=== PATIENT | male | born 1960 | race Caucasian/White ===

== ENCOUNTER → 2023-09-29 | Outpatient (REF) | payer OTHER | LOC: M SFHCDERM 17:08 | PROVIDERS: ATTEND Physician Assistant | DX: C44.309 Unspecified malignant neoplasm of skin of other parts of face (principal) ==

== ENCOUNTER → 2023-10-28 | Outpatient (REF) | payer OTHER | LOC: M SFHCDERM 13:13 | PROVIDERS: ATTEND Physician Assistant | DX: D04.71 Carcinoma in situ of skin of right lower limb, including hip (principal); L85.8 Other specified epidermal thickening ==

== ENCOUNTER 2024-05-06 13:03 | Inpatient (IN) | payer OTHER ==
[~2024-05-06] VITALS: Ht 170.2 cm; Wt 100.6 kg
[~2024-05-06 13:03] MED LIST: FOLIC ACID 1MG TAB PO SCH; MULTIVITAMINS/MINERALS THERAP 1 TAB PO SCH; THIAMINE 100 MG TAB PO SCH
[2024-05-06] MEDS ORDERED: VALS1TAB67 PO (13:16)
[2024-05-06] MEDS ORDERED: SIMV20TA22 PO (13:16)
[2024-05-06] MEDS ORDERED: BISO10TA14 PO (13:16)
[2024-05-06] MEDS ORDERED: HYDR12CA PO (13:16)
[2024-05-06 15:25] LABS: BASO % 0.3 % (0.0-1.0); EOS # 0.1 10^3/uL (0.0-0.5); EOS % 1.4 % (0.0-3.0); HEMATOCRIT 52.4 % (42.0-52.0); HEMOGLOBIN 18.5 g/dl (13.5-17.5); LYMPH # 0.9 10^3/uL (1.5-5.0); LYMPH % 11.4 % (24.0-44.0); MEAN CORPUSCULAR HEMOGLOBIN 32.6 pg (27.0-33.0); MEAN CORPUSCULAR HGB CONC 35.3 g/dl (32.0-36.5); MEAN CORPUSCULAR VOLUME 92.3 fl (80.0-96.0); MONO # 0.8 10^3/uL (0.0-0.8); MONO % 10.6 % (2.0-8.0); NEUTROPHILS # 5.9 10^3/uL (1.5-8.5); NEUTROPHILS % 76.2 % (36.0-66.0); PLATELET COUNT, AUTOMATED 365 10^3/uL (150-450); RED BLOOD COUNT 5.68 10^6/uL (4.30-6.10); WHITE BLOOD COUNT 7.7 10^3/uL (4.0-10.0)
[2024-05-06 15:39] LABS: INR 0.86; PARTIAL THROMBOPLASTIN TIME 30.3 SECONDS (24.8-34.2)
[2024-05-06 15:56] LABS: LIPASE 35 U/L (12-53)
[2024-05-06 15:57] LABS: CK-MB VALUE MASS 4.7 NG/ML (<3.6)
[2024-05-06 15:59] LABS: ALBUMIN 0.9 G/DL (3.2-5.2); ALKALINE PHOSPHATASE 137 U/L (40-129); ALT/SGPT 17 U/L (7.0-40); AST/SGOT 35 U/L (<34); BILIRUBIN,DIRECT < 0.1 MG/DL (<0.4); BILIRUBIN,TOTAL 0.4 MG/DL (0.3-1.2); BLOOD UREA NITROGEN 42 MG/DL (9-23); CALCIUM LEVEL 8.2 MG/DL (8.3-10.6); CARBON DIOXIDE LEVEL 24 MMOL/L (20-31); CHLORIDE LEVEL 104 MMOL/L (98-107); CREATININE FOR GFR 1.49 MG/DL (0.70-1.30); GLOMERULAR FILTRATION RATE 50.9 (>49); GLUCOSE, FASTING 96 MG/DL (74-106); POTASSIUM SERUM 4.5 MMOL/L (3.5-5.1); SODIUM LEVEL 138 MMOL/L (136-145); TOTAL PROTEIN 4.5 G/DL (5.7-8.2)
[2024-05-06 16:00] LABS: CPK CREATINE PHOSPHOKINASE 218 U/L (46-171); MB/CK RELATIVE INDEX 2.15 (< OR =4)
[2024-05-06] MEDS: FUROSEMIDE 100MG/10ML VIAL IV ONE (16:10)
[2024-05-06] MEDS ORDERED: ISOVUE-370 76% 100ML VIAL As Ordered ONE (16:11)
[2024-05-06] MEDS: bisoproloL fumarate 5 MG TAB PO ONE (17:30)
[2024-05-06] MEDS ORDERED: OMEP-173 PO (17:50)
[2024-05-06] MEDS ORDERED: HOME MED LIST COMPLETE! XX SCH (17:50)
[2024-05-06] MEDS: FUROSEMIDE injection 100 MG, VIAL 2 BAG 13MM ADAPTER 1 EACH in NS 100 ML IV SCH (18:45)
[2024-05-06] MEDS ORDERED: LORazepam 2 MG TAB PO PRN (19:40)
[2024-05-06] MEDS: NITROGLYCERIN 2% OINT 1 GM *U/D* PKT TOP ONE (20:19)
[2024-05-06] MEDS: SIMVASTATIN 20 MG TAB PO SCH (20:20)
[2024-05-06] MEDS: MULTIVITAMINS/MINERALS THERAP 1 TAB PO SCH (20:52)
[2024-05-06] MEDS: FOLIC ACID 1MG TAB PO SCH (20:52)
[2024-05-06] MEDS: THIAMINE 100 MG TAB PO SCH (20:52)
[2024-05-07] MEDS ORDERED: **hydrALAZINE** 10 MG TAB PO SCH
[2024-05-07 00:51] LABS: CALCIUM LEVEL 7.8 MG/DL (8.3-10.6); CREATININE FOR GFR 1.65 MG/DL (0.70-1.30); GLOMERULAR FILTRATION RATE 45.2 (>49); PHOSPHORUS LEVEL 5.4 MG/DL (2.4-5.1)
[2024-05-07 06:54] LABS: HEMATOCRIT 47.9 % (42.0-52.0); HEMOGLOBIN 16.7 g/dl (13.5-17.5); MEAN CORPUSCULAR HEMOGLOBIN 32.6 pg (27.0-33.0); MEAN CORPUSCULAR HGB CONC 34.9 g/dl (32.0-36.5); MEAN CORPUSCULAR VOLUME 93.4 fl (80.0-96.0); PLATELET COUNT, AUTOMATED 282 10^3/uL (150-450); RED BLOOD COUNT 5.13 10^6/uL (4.30-6.10); WHITE BLOOD COUNT 8.2 10^3/uL (4.0-10.0)
[2024-05-07 07:31] LABS: ALBUMIN 0.8 G/DL (3.2-5.2); BILIRUBIN,TOTAL 0.4 MG/DL (0.3-1.2); CALCIUM LEVEL 7.7 MG/DL (8.3-10.6); CREATININE FOR GFR 1.56 MG/DL (0.70-1.30); GLOMERULAR FILTRATION RATE 48.2 (>49); POTASSIUM SERUM 4.7 MMOL/L (3.5-5.1); TOTAL PROTEIN 3.9 G/DL (5.7-8.2)
[2024-05-07] MEDS: bisoproloL fumarate 10 MG TAB PO SCH (09:00)
[2024-05-07] MEDS ORDERED: oxyCODONE 5MG TAB PO PRN (11:30)
[2024-05-07] MEDS: oxyCODONE 5MG TAB PO ONE (12:09)
[2024-05-07] MEDS: **hydrALAZINE** 10 MG TAB PO SCH (12:55)
[2024-05-07] MEDS: ISOSORBIDE DIN (ISORDIL) 10MG TAB PO SCH (12:56)
[2024-05-07] MEDS: LIDOCAINE 5% OINT 30GM TUBE TOP SCH (13:00)
[2024-05-07 22:46] VITALS: BP 163/90; TEMP 97.4; O2SAT 97
[2024-05-07] MEDS ORDERED: LORazepam 1 MG TAB PO PRN (22:50)
[2024-05-08] VITALS (19 sets, daily range): BP systolic 135–186; BP diastolic 80–98; TEMP 96.9–98.1; O2SAT 93–98
[2024-05-08 06:52] LABS: HEMATOCRIT 43.6 % (42.0-52.0); HEMOGLOBIN 14.8 g/dl (13.5-17.5); MEAN CORPUSCULAR HEMOGLOBIN 32.5 pg (27.0-33.0); MEAN CORPUSCULAR HGB CONC 33.9 g/dl (32.0-36.5); MEAN CORPUSCULAR VOLUME 95.6 fl (80.0-96.0); PLATELET COUNT, AUTOMATED 220 10^3/uL (150-450); RED BLOOD COUNT 4.56 10^6/uL (4.30-6.10); WHITE BLOOD COUNT 8.4 10^3/uL (4.0-10.0)
[2024-05-08 08:12] LABS: ALBUMIN 1.1 G/DL (3.2-5.2); BILIRUBIN,TOTAL 0.5 MG/DL (0.3-1.2); CALCIUM LEVEL 7.6 MG/DL (8.3-10.6); CREATININE FOR GFR 1.39 MG/DL (0.70-1.30); GLOMERULAR FILTRATION RATE 55.1 (>49); POTASSIUM SERUM 4.3 MMOL/L (3.5-5.1); TOTAL PROTEIN 3.9 G/DL (5.7-8.2)
[2024-05-08] MEDS: metOLazone 5 MG TAB PO ONE ×2 (08:24→17:48)
[2024-05-08] MEDS: FUROSEMIDE 40MG/4ML VIAL IV SCH (09:24)
[2024-05-08 16:04] LABS: APPEARANCE, BODY FLUID HAZY (CLEAR); ASCITES FL COLOR COLORLESS (COLORLESS); SOURCE, BODY FLUID ASCITES
[2024-05-08 16:54] LABS: SOURCE, BODY FLUID ALBUMIN ASCITES
[2024-05-08 16:59] LABS: SOURCE, BODY FLUID GLUCOSE ASCITES
[2024-05-08] MEDS: SODIUM CHLORIDE 0.9% INJ 10 ML SYR IV SCH (17:17)
[2024-05-08] MEDS: cloNIDine 0.1MG TABLET PO ONE (17:48)
[2024-05-08] MEDS: FUROSEMIDE 40MG/4ML VIAL IV ONE (18:17)
[2024-05-08 20:35] LABS: SOURCE, BODY FLUID TOT PROTEIN ASCITES; TOTAL PROTEIN, BODY FLUID < 2.0 G/DL (NOT ESTABLISHED)
[2024-05-09] VITALS (12 sets, daily range): BP systolic 140–170; BP diastolic 92–120; TEMP 97.2–98.6; O2SAT 61–96
[2024-05-09] MEDS: FUROSEMIDE 40MG/4ML VIAL IV SCH (00:08)
[2024-05-09 06:38] LABS: HEMATOCRIT 38.7 % (42.0-52.0); HEMOGLOBIN 13.7 g/dl (13.5-17.5); MEAN CORPUSCULAR HEMOGLOBIN 32.5 pg (27.0-33.0); MEAN CORPUSCULAR HGB CONC 35.4 g/dl (32.0-36.5); MEAN CORPUSCULAR VOLUME 91.7 fl (80.0-96.0); PLATELET COUNT, AUTOMATED 191 10^3/uL (150-450); RED BLOOD COUNT 4.22 10^6/uL (4.30-6.10); WHITE BLOOD COUNT 6.8 10^3/uL (4.0-10.0)
[2024-05-09 07:16] LABS: ALBUMIN 1.2 G/DL (3.2-5.2); ALKALINE PHOSPHATASE 82 U/L (40-129); ALT/SGPT < 9 U/L (7.0-40); AST/SGOT 15 U/L (<34); BILIRUBIN,TOTAL 0.7 MG/DL (0.3-1.2); BLOOD UREA NITROGEN 45 MG/DL (9-23); CALCIUM LEVEL 7.5 MG/DL (8.3-10.6); CARBON DIOXIDE LEVEL 27 MMOL/L (20-31); CHLORIDE LEVEL 102 MMOL/L (98-107); CREATININE FOR GFR 1.15 MG/DL (0.70-1.30); GLOMERULAR FILTRATION RATE > 60.0 (>49); GLUCOSE, FASTING 77 MG/DL (74-106); MAGNESIUM LEVEL 1.8 MG/DL (1.8-2.4); POTASSIUM SERUM 3.6 MMOL/L (3.5-5.1); SODIUM LEVEL 137 MMOL/L (136-145); TOTAL PROTEIN 3.4 G/DL (5.7-8.2)
[2024-05-09] MEDS: SODIUM CHLORIDE 0.9% INJ 10 ML SYR IV PRN (11:45)
[2024-05-09] MEDS: POTASSIUM CHLORIDE 10MEQ SR TABLET PO ONE ×2 (19:06→20:37)
[2024-05-09] MEDS: bisoproloL fumarate 10 MG TAB PO ONE (19:07)
[2024-05-09 19:44] LABS: BLOOD UREA NITROGEN 43 MG/DL (9-23); CALCIUM LEVEL 7.3 MG/DL (8.3-10.6); CARBON DIOXIDE LEVEL 28 MMOL/L (20-31); CHLORIDE LEVEL 102 MMOL/L (98-107); CREATININE FOR GFR 1.14 MG/DL (0.70-1.30); GLOMERULAR FILTRATION RATE > 60.0 (>49); GLUCOSE, FASTING 108 MG/DL (74-106); MAGNESIUM LEVEL 1.7 MG/DL (1.8-2.4); POTASSIUM SERUM 3.4 MMOL/L (3.5-5.1); SODIUM LEVEL 136 MMOL/L (136-145)
[2024-05-09 20:34] LABS: ALKALINE PHOSPHATASE 108 U/L (40-129); ALT/SGPT < 9 U/L (7.0-40); AST/SGOT 17 U/L (<34); BILIRUBIN,TOTAL 0.4 MG/DL (0.3-1.2); TOTAL PROTEIN 3.9 G/DL (5.7-8.2)
[2024-05-09] MEDS: SODIUM CHLORIDE 0.9% 250ML IV ONE (20:37)
[2024-05-09] MEDS: MAGNESIUM OXIDE 400MG TAB (MAG-OX) PO ONE (20:37)
[2024-05-10] VITALS (8 sets, daily range): BP systolic 142–156; BP diastolic 90–110; TEMP 97.6–98.8; O2SAT 92–94
[2024-05-10 05:44] LABS: HEMATOCRIT 43.6 % (42.0-52.0); HEMOGLOBIN 15.4 g/dl (13.5-17.5); MEAN CORPUSCULAR HEMOGLOBIN 32.1 pg (27.0-33.0); MEAN CORPUSCULAR HGB CONC 35.3 g/dl (32.0-36.5); MEAN CORPUSCULAR VOLUME 90.8 fl (80.0-96.0); PLATELET COUNT, AUTOMATED 215 10^3/uL (150-450); WHITE BLOOD COUNT 7.8 10^3/uL (4.0-10.0)
[2024-05-10 06:09] LABS: ALKALINE PHOSPHATASE 97 U/L (40-129); ALT/SGPT < 9 U/L (7.0-40); AST/SGOT 15 U/L (<34); BILIRUBIN,TOTAL 0.5 MG/DL (0.3-1.2); BLOOD UREA NITROGEN 42 MG/DL (9-23); CALCIUM LEVEL 7.2 MG/DL (8.3-10.6); CARBON DIOXIDE LEVEL 27 MMOL/L (20-31); CHLORIDE LEVEL 104 MMOL/L (98-107); CREATININE FOR GFR 1.27 MG/DL (0.70-1.30); GLOMERULAR FILTRATION RATE > 60.0 (>49); GLUCOSE, FASTING 93 MG/DL (74-106); MAGNESIUM LEVEL 1.7 MG/DL (1.8-2.4); POTASSIUM SERUM 4.1 MMOL/L (3.5-5.1); SODIUM LEVEL 138 MMOL/L (136-145); TOTAL PROTEIN 3.7 G/DL (5.7-8.2)
[2024-05-10] MEDS: MAGNESIUM OXIDE 400MG TAB (MAG-OX) PO SCH (09:11)
[2024-05-10] MEDS: FUROSEMIDE 40MG/4ML VIAL IV SCH (09:11)
[2024-05-10] MEDS: THIAMINE 100 MG TAB PO SCH (09:11)
[2024-05-10] MEDS: metOLazone 5 MG TAB PO SCH (12:43)
[2024-05-10] MEDS ORDERED: ONDANSETRON 4MG 2ML VIAL IV PRN (15:40)
[2024-05-10] MEDS: bisoproloL fumarate 10 MG TAB PO SCH (20:18)
[2024-05-11] VITALS (11 sets, daily range): BP systolic 130–170; BP diastolic 84–130; TEMP 97.2–98.2; O2SAT 93–95
[2024-05-11 06:30] LABS: HEMOGLOBIN 15.6 g/dl (13.5-17.5); MEAN CORPUSCULAR HEMOGLOBIN 31.6 pg (27.0-33.0); MEAN CORPUSCULAR HGB CONC 34.7 g/dl (32.0-36.5); MEAN CORPUSCULAR VOLUME 91.3 fl (80.0-96.0); PLATELET COUNT, AUTOMATED 226 10^3/uL (150-450); RED BLOOD COUNT 4.93 10^6/uL (4.30-6.10); WHITE BLOOD COUNT 7.6 10^3/uL (4.0-10.0)
[2024-05-11 06:58] LABS: ALBUMIN 1.1 G/DL (3.2-5.2); ALKALINE PHOSPHATASE 96 U/L (40-129); ALT/SGPT < 9 U/L (7.0-40); AST/SGOT 16 U/L (<34); BILIRUBIN,TOTAL 0.5 MG/DL (0.3-1.2); BLOOD UREA NITROGEN 42 MG/DL (9-23); CALCIUM LEVEL 7.4 MG/DL (8.3-10.6); CARBON DIOXIDE LEVEL 29 MMOL/L (20-31); CHLORIDE LEVEL 102 MMOL/L (98-107); CREATININE FOR GFR 1.28 MG/DL (0.70-1.30); GLOMERULAR FILTRATION RATE > 60.0 (>49); GLUCOSE, FASTING 85 MG/DL (74-106); MAGNESIUM LEVEL 1.8 MG/DL (1.8-2.4); SODIUM LEVEL 136 MMOL/L (136-145); TOTAL PROTEIN 3.6 G/DL (5.7-8.2)
[2024-05-11] MEDS: POTASSIUM CHLORIDE 10MEQ SR TABLET PO SCH (08:49)
[2024-05-11] MEDS: FUROSEMIDE 40MG/4ML VIAL IV SCH (08:50)
[2024-05-11] MEDS: VALSARTAN 40MG TABLET (DIOVAN) PO SCH ×2 (15:34→21:19)
[2024-05-11] MEDS: **hydrALAZINE HCL** 25 MG TAB PO SCH (18:00)
[2024-05-11] MEDS ORDERED: VALSARTAN 40MG TABLET (DIOVAN) PO SCH (21:00)
[2024-05-12] VITALS (10 sets, daily range): BP systolic 144–162; BP diastolic 98–111; TEMP 97.2–97.9; O2SAT 92–95
[2024-05-12 09:43] LABS: MEAN CORPUSCULAR HGB CONC 34.8 g/dl (32.0-36.5); PLATELET COUNT, AUTOMATED 236 10^3/uL (150-450); WHITE BLOOD COUNT 8.6 10^3/uL (4.0-10.0)
[2024-05-12 10:18] LABS: ALBUMIN 1.5 G/DL (3.2-5.2); ALKALINE PHOSPHATASE 91 U/L (40-129); ALT/SGPT < 9 U/L (7.0-40); AST/SGOT 15 U/L (<34); BILIRUBIN,TOTAL 0.5 MG/DL (0.3-1.2); BLOOD UREA NITROGEN 40 MG/DL (9-23); CALCIUM LEVEL 7.4 MG/DL (8.3-10.6); CARBON DIOXIDE LEVEL 29 MMOL/L (20-31); CHLORIDE LEVEL 100 MMOL/L (98-107); CREATININE FOR GFR 1.29 MG/DL (0.70-1.30); GLOMERULAR FILTRATION RATE > 60.0 (>49); GLUCOSE, FASTING 133 MG/DL (74-106); MAGNESIUM LEVEL 1.7 MG/DL (1.8-2.4); POTASSIUM SERUM 3.1 MMOL/L (3.5-5.1); SODIUM LEVEL 134 MMOL/L (136-145); TOTAL PROTEIN 4.5 G/DL (5.7-8.2)
[2024-05-12] MEDS: MAGNESIUM OXIDE 400MG TAB (MAG-OX) PO SCH (12:16)
[2024-05-12] MEDS: POTASSIUM CHLORIDE 10MEQ SR TABLET PO ONE (13:04)
[2024-05-13] VITALS (8 sets, daily range): BP systolic 110–158; BP diastolic 62–102; TEMP 97–97.7; O2SAT 93–95
[2024-05-13 06:55] LABS: HEMATOCRIT 42.6 % (42.0-52.0); MEAN CORPUSCULAR HEMOGLOBIN 32.4 pg (27.0-33.0); MEAN CORPUSCULAR HGB CONC 35.2 g/dl (32.0-36.5); PLATELET COUNT, AUTOMATED 214 10^3/uL (150-450); RED BLOOD COUNT 4.63 10^6/uL (4.30-6.10); WHITE BLOOD COUNT 8.4 10^3/uL (4.0-10.0)
[2024-05-13 07:21] LABS: ALBUMIN 1.2 G/DL (3.2-5.2); ALKALINE PHOSPHATASE 94 U/L (40-129); ALT/SGPT < 9 U/L (7.0-40); AST/SGOT 13 U/L (<34); BILIRUBIN,TOTAL 0.6 MG/DL (0.3-1.2); BLOOD UREA NITROGEN 40 MG/DL (9-23); CALCIUM LEVEL 7.5 MG/DL (8.3-10.6); CARBON DIOXIDE LEVEL 30 MMOL/L (20-31); CHLORIDE LEVEL 99 MMOL/L (98-107); CREATININE FOR GFR 1.32 MG/DL (0.70-1.30); GLOMERULAR FILTRATION RATE 58.5 (>49); GLUCOSE, FASTING 76 MG/DL (74-106); MAGNESIUM LEVEL 1.8 MG/DL (1.8-2.4); POTASSIUM SERUM 3.8 MMOL/L (3.5-5.1); SODIUM LEVEL 138 MMOL/L (136-145); TOTAL PROTEIN 3.7 G/DL (5.7-8.2)
[2024-05-13] MEDS: VALSARTAN 40MG TABLET (DIOVAN) PO SCH (09:12)
[2024-05-13] MEDS: FUROSEMIDE 100MG/10ML VIAL IV SCH (09:12)
[2024-05-13] MEDS ORDERED: PREPARATION H OINTMENT (HEMORRHOID) PR PRN (11:25)
[2024-05-14] VITALS (7 sets, daily range): BP systolic 116–158; BP diastolic 88–103; TEMP 97.2–97.9; O2SAT 93–95
[2024-05-14 09:48] LABS: CALCIUM LEVEL 7.4 MG/DL (8.3-10.6); CREATININE FOR GFR 1.46 MG/DL (0.70-1.30); GLOMERULAR FILTRATION RATE 52.1 (>49); POTASSIUM SERUM 3.8 MMOL/L (3.5-5.1)
[2024-05-14] MEDS: ANUSOL HC CREAM 30GM PR PRN (12:16)
[2024-05-14] MEDS: TORSEMIDE 20 MG TAB PO SCH (17:05)
[2024-05-15 04:13] VITALS: BP 142/96; TEMP 97.3; O2SAT 93
[2024-05-15 05:57] VITALS: BP 142/88
[2024-05-15 06:17] LABS: BASO % 0.4 % (0.0-1.0); EOS # 0.3 10^3/uL (0.0-0.5); HEMATOCRIT 44.7 % (42.0-52.0); HEMOGLOBIN 15.6 g/dl (13.5-17.5); LYMPH # 1.6 10^3/uL (1.5-5.0); LYMPH % 18.4 % (24.0-44.0); MEAN CORPUSCULAR HEMOGLOBIN 31.9 pg (27.0-33.0); MEAN CORPUSCULAR HGB CONC 34.9 g/dl (32.0-36.5); MEAN CORPUSCULAR VOLUME 91.4 fl (80.0-96.0); MONO # 1.3 10^3/uL (0.0-0.8); NEUTROPHILS # 5.2 10^3/uL (1.5-8.5); NEUTROPHILS % 61.8 % (36.0-66.0); PLATELET COUNT, AUTOMATED 246 10^3/uL (150-450); RED BLOOD COUNT 4.89 10^6/uL (4.30-6.10); WHITE BLOOD COUNT 8.5 10^3/uL (4.0-10.0)
[2024-05-15 06:34] LABS: CALCIUM LEVEL 7.2 MG/DL (8.3-10.6); CREATININE FOR GFR 1.66 MG/DL (0.70-1.30); GLOMERULAR FILTRATION RATE 44.9 (>49); POTASSIUM SERUM 4.1 MMOL/L (3.5-5.1)
[2024-05-15] MEDS ORDERED: VALSARTAN 80 MG TAB (DIOVAN) PO SCH (09:39)
[2024-05-15 09:49] VITALS: BP 118/80; TEMP 97.2; O2SAT 94
[2024-05-15] MEDS ORDERED: SPIR-10 PO (10:40)
[2024-05-15] MEDS ORDERED: FOLI1TAB11 PO (10:40)
[2024-05-15] MEDS ORDERED: TORS20TA2 PO (10:40)
[2024-05-15] MEDS ORDERED: THIA100TA PO (10:40)
[2024-05-15 12:26] VITALS: BP 122/84; TEMP 97.5; O2SAT 92
[2024-05-15 16:30] VITALS: BP 148/90; TEMP 97.3; O2SAT 95
== END 2024-05-15 17:48 | disposition home health service (06) | DRG 433 ==
LOC: M ED 13:03 → M ED INP 17:19 → M MS4PR 05-07 22:41 → M MSPAV 05-11 18:38
PROVIDERS: ADMIT General Practice; ATTEND Internal Medicine Nephrology
PROC: 30233J1 Transfusion of Nonautologous Serum Albumin into Peripheral Vein, Percutaneous Approach (ICD-10-PCS; 2024-05-07)
PROC: 0W9G3ZZ Drainage of Peritoneal Cavity, Percutaneous Approach (ICD-10-PCS; 2024-05-08)
PROC: B246ZZZ Ultrasonography of Right and Left Heart (ICD-10-PCS; principal; 2024-05-08 13:00)
DX: K70.31 Alcoholic cirrhosis of liver with ascites (principal); N17.9 Acute kidney failure, unspecified; J98.11 Atelectasis; J90 Pleural effusion, not elsewhere classified; F10.10 Alcohol abuse, uncomplicated; N18.30 Chronic kidney disease, stage 3 unspecified; I16.0 Hypertensive urgency; E66.9 Obesity, unspecified; D75.1 Secondary polycythemia; E88.09 Other disorders of plasma-protein metabolism, not elsewhere classified; I95.9 Hypotension, unspecified; E87.6 Hypokalemia; E83.42 Hypomagnesemia; I12.9 Hypertensive chronic kidney disease with stage 1 through stage 4 chronic kidney disease, or unspecified chronic kidney disease; E78.00 Pure hypercholesterolemia, unspecified; K21.9 Gastro-esophageal reflux disease without esophagitis; L57.0 Actinic keratosis; K44.9 Diaphragmatic hernia without obstruction or gangrene; K57.90 Diverticulosis of intestine, part unspecified, without perforation or abscess without bleeding; L82.1 Other seborrheic keratosis; Z68.37 Body mass index [BMI] 37.0-37.9, adult; Z85.828 Personal history of other malignant neoplasm of skin; Z79.899 Other long term (current) drug therapy

== ENCOUNTER 2024-09-28 10:50 | Inpatient (IN) | payer OTHER ==
[~2024-09-28] VITALS: Ht 170.2 cm; Wt 63.5 kg
[~2024-09-28 10:50] MED LIST changes: +BISO10TA14 PO; +CARV12.5 PO; +CENT1TAB2 PO; +DIFI200T PO; +DOXA1TAB41 PO; +DOXA1TAB91 PO; +DOXA2TAB61 PO; +ELIQ5TAB PO; +FOLI1TAB11 PO; -FOLIC ACID 1MG TAB PO SCH; +GLUC1VIA14 IM; +HYDR12.510 PO; +INSU100V6 SQ; +LINE1TAB6 PO; +LOPE1CAP5 PO; +MAGN400T2 PO; +MAGN400T33 PO; +METR-265 PO; +MIRA3350 PO; +MIRA33506 PO; -MULTIVITAMINS/MINERALS THERAP 1 TAB PO SCH; +OMEP-173 PO; +PANT-23 PO; +PANT40TA29 PO; +PAPA100T PO; +POLY17PO18 PO; +PROB250C PO; +RENV2TAB PO; +RISATAB3 PO; +SENN-186 PO; +SEVE800T3 PO; +SIMV20TA22 PO; +SPIR-10 PO; +THERTAB19 PO; +THERTAB52 PO; +THIA100T7 PO; +THIA100TA PO; -THIAMINE 100 MG TAB PO SCH; +TORS20TA2 PO; +VALS1TAB67 PO
[2024-09-28 13:07] LABS: BASO # 0.1 10^3/uL (0.0-0.2); BASO % 0.5 % (0.0-1.0); EOS # 0.1 10^3/uL (0.0-0.5); EOS % 0.5 % (0.0-3.0); LYMPH # 1.9 10^3/uL (1.5-5.0); LYMPH % 19.9 % (24.0-44.0); MONO # 1.3 10^3/uL (0.0-0.8); MONO % 13.7 % (2.0-8.0); NEUTROPHILS # 6.3 10^3/uL (1.5-8.5); NEUTROPHILS % 65.1 % (36.0-66.0); PLATELET COUNT, AUTOMATED 232 10^3/uL (150-450)
[2024-09-28 13:40] LABS: CK-MB VALUE MASS 1.5 NG/ML (<3.6); ETHYL ALCOHOL (ETHANOL) < 0.003 % (0.000-0.010)
[2024-09-28 13:42] LABS: ALT/SGPT 43 U/L (7.0-40); AST/SGOT 51 U/L (<34); CALCIUM LEVEL 7.2 MG/DL (8.3-10.6); CARBON DIOXIDE LEVEL 26 MMOL/L (20-31); CHLORIDE LEVEL 98 MMOL/L (98-107); CREATININE FOR GFR 2.30 MG/DL (0.70-1.30); GLOMERULAR FILTRATION RATE 31.3 (>49); POTASSIUM SERUM 4.2 MMOL/L (3.5-5.1); SALICYLATE LEVEL < 3.0 MG/DL (<30); SODIUM LEVEL 135 MMOL/L (136-145)
[2024-09-28 13:47] LABS: CPK CREATINE PHOSPHOKINASE 46 U/L (46-171); MB/CK RELATIVE INDEX 3.26 (< OR =4)
[2024-09-28] MEDS: NS (Normal Saline) 0.9% 1,000 ML IV SCH (14:08)
[2024-09-28 15:53] LABS: CK-MB VALUE MASS 1.7 NG/ML (<3.6)
[2024-09-28 15:59] LABS: CPK CREATINE PHOSPHOKINASE 49.0 U/L (46-171); MB/CK RELATIVE INDEX 3.46 (< OR =4)
[2024-09-28] MEDS ORDERED: MIDO5TA PO (17:35)
[2024-09-28] MEDS ORDERED: DIFI200T PO (17:35)
[2024-09-28] MEDS ORDERED: HOME MED LIST COMPLETE! XX SCH (17:40)
[2024-09-29 05:02] VITALS: BP 146/108; TEMP 97.3; O2SAT 97
[2024-09-29] MEDS ORDERED: HEPARIN 1,000 UNITS/ML 10 ML VIAL (FOR RADIOLOGY & DIALYSIS ONLY) IV PRN (07:00)
[2024-09-29] MEDS ORDERED: SODIUM CHLORIDE 0.9% 1000 ML IV PRN (07:00)
[2024-09-29] MEDS: MIDODRINE 5 MG TAB PO SCH (07:54)
[2024-09-29] MEDS: PANTOPRAZOLE 40MG TAB PO SCH (07:54)
[2024-09-29] MEDS: MAGNESIUM OXIDE 400 MG TAB PO SCH (07:54)
[2024-09-29] MEDS: SEVELAMER *CARBONate* 800 MG TAB PO SCH (07:54)
[2024-09-29] MEDS ORDERED: FIDAXOMICIN 200 MG TAB PO SCH (09:00)
[2024-09-29 09:04] VITALS: BP 123/92; TEMP 98
[2024-09-29 09:08] VITALS: BP 126/95; TEMP 98
[2024-09-29] MEDS: HEPARIN 1,000 UNITS/ML 10 ML VIAL (FOR RADIOLOGY & DIALYSIS ONLY) XX SCH (09:22)
[2024-09-29 12:52] VITALS: BP 129/88; TEMP 96.8; O2SAT 98
[2024-09-29] MEDS ORDERED: ISOVUE-370 76% 100 ML VIAL As Ordered ONE (14:39)
[2024-09-29 20:31] VITALS: BP 149/99; TEMP 97.8; O2SAT 99
[2024-09-29] MEDS: APIXABAN 2.5 MG TAB PO SCH (20:42)
[2024-09-30] VITALS (14 sets, daily range): BP systolic 111–146; BP diastolic 73–100; TEMP 96.6–97.9; O2SAT 97–100
[2024-09-30 05:23] LABS: BASO # 0.0 10^3/uL (0.0-0.2); BASO % 0.6 % (0.0-1.0); EOS # 0.1 10^3/uL (0.0-0.5); EOS % 0.9 % (0.0-3.0); LYMPH # 1.2 10^3/uL (1.5-5.0); LYMPH % 22.5 % (24.0-44.0); MONO # 0.6 10^3/uL (0.0-0.8); MONO % 11.2 % (2.0-8.0); NEUTROPHILS # 3.4 10^3/uL (1.5-8.5); NEUTROPHILS % 64.4 % (36.0-66.0); PLATELET COUNT, AUTOMATED 139 10^3/uL (150-450)
[2024-09-30 05:37] LABS: CALCIUM LEVEL 7.1 MG/DL (8.3-10.6); CARBON DIOXIDE LEVEL 21.0 MMOL/L (20-31); CHLORIDE LEVEL 103.0 MMOL/L (98-107); CREATININE FOR GFR 1.79 MG/DL (0.70-1.30); GLOMERULAR FILTRATION RATE 42.3 (>49); POTASSIUM SERUM 4.2 MMOL/L (3.5-5.1); SODIUM LEVEL 136.0 MMOL/L (136-145)
[2024-09-30] MEDS ORDERED: SODIUM CHLORIDE 0.9% 1000 ML IV PRN (06:00)
[2024-09-30] MEDS ORDERED: HEPARIN 1,000 UNITS/ML 10 ML VIAL (FOR RADIOLOGY & DIALYSIS ONLY) IV PRN (06:00)
[2024-09-30] MEDS: DEXTROSE 50% 50 ML SYRINGE IV STA (07:37)
[2024-09-30] MEDS ORDERED: GLUCOSE 4 GM CHEW PO PRN (08:05)
[2024-09-30] MEDS ORDERED: GLUCAGON INJ 1 MG VIAL SC PRN (08:05)
[2024-09-30] MEDS: HEPARIN 1,000 UNITS/ML 10 ML VIAL (FOR RADIOLOGY & DIALYSIS ONLY) XX SCH (09:17)
[2024-09-30] MEDS: DEXTROSE 50% 50 ML SYRINGE IV PRN (15:42)
[2024-09-30] MEDS: ONDANSETRON 4MG 2ML VIAL IV PRN (16:39)
[2024-10-01] VITALS (17 sets, daily range): BP systolic 110–137; BP diastolic 76–91; TEMP 96.8–99; O2SAT 95–100
[2024-10-01 05:42] LABS: BASO # 0.0 10^3/uL (0.0-0.2); BASO % 0.2 % (0.0-1.0); EOS # 0.0 10^3/uL (0.0-0.5); EOS % 0.5 % (0.0-3.0); LYMPH # 1.0 10^3/uL (1.5-5.0); LYMPH % 17.0 % (24.0-44.0); MONO # 0.6 10^3/uL (0.0-0.8); MONO % 10.5 % (2.0-8.0); NEUTROPHILS # 4.4 10^3/uL (1.5-8.5); NEUTROPHILS % 71.5 % (36.0-66.0); PLATELET COUNT, AUTOMATED 117 10^3/uL (150-450)
[2024-10-01 06:11] LABS: CORTISOL AM 11.6 UG/DL (4.3-22.4)
[2024-10-01 06:14] LABS: CALCIUM LEVEL 7.7 MG/DL (8.3-10.6); CARBON DIOXIDE LEVEL 29.0 MMOL/L (20-31); CHLORIDE LEVEL 96.0 MMOL/L (98-107); CREATININE FOR GFR 1.54 MG/DL (0.70-1.30); GLOMERULAR FILTRATION RATE 50.7 (>49); MAGNESIUM LEVEL 1.6 MG/DL (1.8-2.4); PHOSPHORUS LEVEL 1.0 MG/DL (2.4-5.1); POTASSIUM SERUM 3.2 MMOL/L (3.5-5.1); SODIUM LEVEL 133.0 MMOL/L (136-145)
[2024-10-01] MEDS: MAG SULF 1GM/100ML (MAG RUN) 1 GM in IV 1 EA IV SCH (09:00)
[2024-10-01] MEDS: POTASSIUM PHOSPHATE INJ 30 MMOL in D5W 500 ML IV ONE (13:00)
[2024-10-02] VITALS (9 sets, daily range): BP systolic 129–135; BP diastolic 9–93; TEMP 97–98.8; O2SAT 94–99
[2024-10-02 06:06] LABS: BASO # 0.0 10^3/uL (0.0-0.2); BASO % 0.2 % (0.0-1.0); EOS # 0.1 10^3/uL (0.0-0.5); EOS % 0.5 % (0.0-3.0); LYMPH # 0.8 10^3/uL (1.5-5.0); LYMPH % 8.2 % (24.0-44.0); MONO # 0.7 10^3/uL (0.0-0.8); MONO % 7.5 % (2.0-8.0); NEUTROPHILS # 8.0 10^3/uL (1.5-8.5); NEUTROPHILS % 83.2 % (36.0-66.0); PLATELET COUNT, AUTOMATED 129 10^3/uL (150-450)
[2024-10-02 06:38] LABS: CALCIUM LEVEL 8.6 MG/DL (8.3-10.6); CARBON DIOXIDE LEVEL 30.0 MMOL/L (20-31); CHLORIDE LEVEL 94.0 MMOL/L (98-107); CREATININE FOR GFR 1.75 MG/DL (0.70-1.30); GLOMERULAR FILTRATION RATE 43.5 (>49); POTASSIUM SERUM 3.8 MMOL/L (3.5-5.1); SODIUM LEVEL 131.0 MMOL/L (136-145)
[2024-10-02] MEDS ORDERED: MIDODRINE 5 MG TAB PO PRN (08:00)
[2024-10-02] MEDS: MIDODRINE 5 MG TAB PO SCH (08:06)
[2024-10-02] MEDS ORDERED: LISINOPRIL 2.5 MG TAB PO SCH (09:00)
[2024-10-02] MEDS: LISINOPRIL 2.5 MG TAB PO SCH (15:13)
[2024-10-03 05:01] VITALS: BP 130/90; TEMP 97; O2SAT 98
[2024-10-03] MEDS ORDERED: SODIUM CHLORIDE 0.9% 1000 ML IV PRN (06:00)
[2024-10-03] MEDS ORDERED: HEPARIN 1,000 UNITS/ML 10 ML VIAL (FOR RADIOLOGY & DIALYSIS ONLY) IV PRN (06:00)
[2024-10-03 06:34] LABS: BASO # 0.0 10^3/uL (0.0-0.2); BASO % 0.3 % (0.0-1.0); EOS # 0.1 10^3/uL (0.0-0.5); EOS % 0.7 % (0.0-3.0); LYMPH # 1.1 10^3/uL (1.5-5.0); LYMPH % 10.1 % (24.0-44.0); MONO # 1.0 10^3/uL (0.0-0.8); MONO % 8.9 % (2.0-8.0); NEUTROPHILS # 8.9 10^3/uL (1.5-8.5); NEUTROPHILS % 79.6 % (36.0-66.0); PLATELET COUNT, AUTOMATED 131 10^3/uL (150-450)
[2024-10-03 07:28] LABS: CALCIUM LEVEL 8.6 MG/DL (8.3-10.6); CARBON DIOXIDE LEVEL 28.0 MMOL/L (20-31); CHLORIDE LEVEL 94.0 MMOL/L (98-107); CREATININE FOR GFR 1.95 MG/DL (0.70-1.30); GLOMERULAR FILTRATION RATE 38.2 (>49); POTASSIUM SERUM 4.6 MMOL/L (3.5-5.1); SODIUM LEVEL 131.0 MMOL/L (136-145)
[2024-10-03] MEDS: DARBEPOETIN 100 MCG/0.5 ML *DIALYSIS* SYRINGE IV SCH (09:17)
[2024-10-03] MEDS: HEPARIN 1,000 UNITS/ML 10 ML VIAL (FOR RADIOLOGY & DIALYSIS ONLY) XX SCH (09:18)
[2024-10-03 12:00] VITALS: BP 122/85; TEMP 96.8; O2SAT 100
[2024-10-03 12:50] VITALS: BP 122/65; TEMP 96.8; O2SAT 100
[2024-10-03 14:40] VITALS: BP 117/81; TEMP 96.6; O2SAT 98
[2024-10-03 19:02] VITALS: BP 128/89; TEMP 97; O2SAT 97
[2024-10-03 19:49] VITALS: BP_SYST 129; BP_DIAS 3; BP_DIAS 73; TEMP 96.8; O2SAT 97
[2024-10-03] MEDS: FIDAXOMICIN 200 MG TAB PO SCH (21:15)
[2024-10-04] VITALS (7 sets, daily range): BP systolic 130–143; BP diastolic 93–96; TEMP 97–97.2; O2SAT 95–98
[2024-10-04 06:36] LABS: BASO # 0.0 10^3/uL (0.0-0.2); BASO % 0.3 % (0.0-1.0); EOS # 0.0 10^3/uL (0.0-0.5); EOS % 0.4 % (0.0-3.0); LYMPH # 1.2 10^3/uL (1.5-5.0); LYMPH % 10.9 % (24.0-44.0); MONO # 0.9 10^3/uL (0.0-0.8); MONO % 8.5 % (2.0-8.0); NEUTROPHILS # 8.6 10^3/uL (1.5-8.5); NEUTROPHILS % 79.4 % (36.0-66.0); PLATELET COUNT, AUTOMATED 147 10^3/uL (150-450)
[2024-10-04 07:06] LABS: CALCIUM LEVEL 8.6 MG/DL (8.3-10.6); CARBON DIOXIDE LEVEL 30.0 MMOL/L (20-31); CHLORIDE LEVEL 96.0 MMOL/L (98-107); CREATININE FOR GFR 1.66 MG/DL (0.70-1.30); GLOMERULAR FILTRATION RATE 46.3 (>49); POTASSIUM SERUM 3.8 MMOL/L (3.5-5.1); SODIUM LEVEL 136.0 MMOL/L (136-145)
[2024-10-04] MEDS: INDOMETHACIN 25 MG CAP PO SCH (17:33)
[2024-10-05 04:42] VITALS: BP 140/93; TEMP 97; O2SAT 99
[2024-10-05] MEDS ORDERED: HEPARIN 1,000 UNITS/ML 10 ML VIAL (FOR RADIOLOGY & DIALYSIS ONLY) XX SCH (06:00)
[2024-10-05] MEDS ORDERED: HEPARIN 1,000 UNITS/ML 10 ML VIAL (FOR RADIOLOGY & DIALYSIS ONLY) IV PRN (06:00)
[2024-10-05] MEDS ORDERED: SODIUM CHLORIDE 0.9% 1000 ML IV PRN (06:00)
[2024-10-05 06:43] LABS: BASO # 0.0 10^3/uL (0.0-0.2); BASO % 0.3 % (0.0-1.0); EOS # 0.0 10^3/uL (0.0-0.5); EOS % 0.5 % (0.0-3.0); LYMPH # 1.6 10^3/uL (1.5-5.0); LYMPH % 20.3 % (24.0-44.0); MONO # 1.0 10^3/uL (0.0-0.8); MONO % 12.1 % (2.0-8.0); NEUTROPHILS # 5.2 10^3/uL (1.5-8.5); NEUTROPHILS % 66.5 % (36.0-66.0); PLATELET COUNT, AUTOMATED 160 10^3/uL (150-450)
[2024-10-05 07:14] LABS: CALCIUM LEVEL 8.6 MG/DL (8.3-10.6); CARBON DIOXIDE LEVEL 29.0 MMOL/L (20-31); CHLORIDE LEVEL 96.0 MMOL/L (98-107); CREATININE FOR GFR 1.9 MG/DL (0.70-1.30); GLOMERULAR FILTRATION RATE 39.4 (>49); POTASSIUM SERUM 4.0 MMOL/L (3.5-5.1); SODIUM LEVEL 130.0 MMOL/L (136-145)
[2024-10-05 12:00] VITALS: BP 142/104; TEMP 97.3; O2SAT 98
[2024-10-05 20:25] VITALS: BP 123/91; TEMP 97; O2SAT 97
[2024-10-06 06:06] VITALS: BP 121/89; TEMP 97.2; O2SAT 98
[2024-10-06 10:08] VITALS: BP 116/83
[2024-10-06 12:15] VITALS: TEMP 97.9
[2024-10-06] MEDS ORDERED: LIDOCAINE 1% MDV 20 ML VIAL As Ordered ONE (12:20)
[2024-10-06 12:35] VITALS: BP 109/57; O2SAT 100
[2024-10-06] MEDS ORDERED: POLYVINYL ALCOHOL OPHTH SOLN 15ML (LIQUITEARS) OU PRN (14:50)
[2024-10-06] MEDS ORDERED: SALIVA SUBSTITUTE BTL MT PRN (14:50)
[2024-10-06] MEDS ORDERED: HALOPERIDOL 2 MG TAB PO PRN (14:55)
[2024-10-06] MEDS: LORazepam 0.5 MG TAB PO PRN (21:37)
[2024-10-07] MEDS: VITAMIN A & D OINTMENT 42.5GM TOP SCH (09:00)
[2024-10-10] MEDS: ACETAMINOPHEN 500 MG TAB PO PRN (16:00)
[2024-10-12] MEDS: ACETAMINOPHEN 500 MG TAB PO PRN (16:58)
[2024-10-12] MEDS: RAMELTEON 8 MG TAB PO SCH (20:07)
[2024-10-13] MEDS: MORPHINE 10 MG/0.5 ML ORAL CONCENTRATE SOLUTION U/D SL PRN (09:56)
[2024-10-13] MEDS: LORazepam 0.5 MG TAB PO SCH (23:02)
[2024-10-14] MEDS: ONDANSETRON 4MG ORAL DISINTEGRATING TAB PO PRN (12:16)
[2024-10-14] MEDS: MORPHINE 10 MG/0.5 ML ORAL CONCENTRATE SOLUTION U/D SL PRN (16:00)
[2024-10-15] MEDS: HYOSCYAMINE SULFATE 0.125 MG SUBL TABLET SL PRN (07:22)
[2024-10-15] MEDS: ATROPINE SULFATE 1% OPHTH SOLN 2 ML BTL SL PRN (12:25)
== END 2024-10-15 18:14 | disposition expired | DRG 682 ==
LOC: M ED 10:50 → EDBD 10:50 → M ED INP 16:27 → M MSPAV 09-29 04:49
PROVIDERS: ADMIT Internal Medicine Nephrology; ATTEND Internal Medicine Nephrology
PROC: 5A1D70Z Performance of Urinary Filtration, Intermittent, Less than 6 Hours Per Day (ICD-10-PCS; principal; 2024-09-29)
PROC: 30233J1 Transfusion of Nonautologous Serum Albumin into Peripheral Vein, Percutaneous Approach (ICD-10-PCS; 2024-09-29)
PROC: 0JPT33Z Removal of Infusion Device from Trunk Subcutaneous Tissue and Fascia, Percutaneous Approach (ICD-10-PCS; 2024-10-06)
DX: N18.6 End stage renal disease (principal); E43 Unspecified severe protein-calorie malnutrition; G72.81 Critical illness myopathy; A04.71 Enterocolitis due to Clostridium difficile, recurrent; J90 Pleural effusion, not elsewhere classified; J98.11 Atelectasis; E87.70 Fluid overload, unspecified; K70.31 Alcoholic cirrhosis of liver with ascites; K21.9 Gastro-esophageal reflux disease without esophagitis; K44.9 Diaphragmatic hernia without obstruction or gangrene; I95.1 Orthostatic hypotension; K26.9 Duodenal ulcer, unspecified as acute or chronic, without hemorrhage or perforation; I48.0 Paroxysmal atrial fibrillation; Z51.5 Encounter for palliative care; Z66 Do not resuscitate; I95.3 Hypotension of hemodialysis; E88.09 Other disorders of plasma-protein metabolism, not elsewhere classified; R54 Age-related physical debility; R26.89 Other abnormalities of gait and mobility; L57.0 Actinic keratosis; L82.1 Other seborrheic keratosis; I12.0 Hypertensive chronic kidney disease with stage 5 chronic kidney disease or end stage renal disease; E78.5 Hyperlipidemia, unspecified; H91.93 Unspecified hearing loss, bilateral; K42.9 Umbilical hernia without obstruction or gangrene; F10.21 Alcohol dependence, in remission; E87.5 Hyperkalemia; E16.2 Hypoglycemia, unspecified; R74.01 Elevation of levels of liver transaminase levels; R57.1 Hypovolemic shock; D63.1 Anemia in chronic kidney disease; R62.7 Adult failure to thrive; G62.9 Polyneuropathy, unspecified; M47.812 Spondylosis without myelopathy or radiculopathy, cervical region; E83.39 Other disorders of phosphorus metabolism; E83.42 Hypomagnesemia; R06.6 Hiccough; Z86.718 Personal history of other venous thrombosis and embolism; Z99.2 Dependence on renal dialysis; Z79.899 Other long term (current) drug therapy; Z85.828 Personal history of other malignant neoplasm of skin